=== PATIENT | female | born 1945 | race Caucasian/White ===

== ENCOUNTER 2016-09-13 13:07 | Inpatient (IN) | payer OTHER, MEDICAID ==
[~2016-09-13] VITALS: Ht 157.5 cm; Wt 152.0 kg
[~2016-09-13 13:07] MED LIST: ASPIRIN LOW DOS81 M2 PO; BUPROPION HCL150 M1 PO; CALCIUM CITRATE1 TA1 PO; CALMOSEPTINE1 OIN TOP; CEFPODOXIME PR200 MG PO; CLEARLAX17 GM/Dose PO; COLACE100 MG PO; COZAAR100 MG PO; FLUTICASON0.05 MG/Ac NS; LEVOTHYROXIN0.025 M2 PO; LIPITOR80 MG PO; LOPRESSOR50 MG PO; MICONAZOLE1 POW; NORTRIPTYLINE H10 MG PO; NORVASC2.5 MG PO; OMEPRAZOLE DR20 M1 PO; PERCOCET1 TA2 PO; PROVENTIL0.09 MG/A1 IH; ZITHROMAX500 MG PO; ZOLOFT100 MG PO
[2016-09-13 14:10] LABS: BASOPHIL % 0.2 % (0-2); PLATELET COUNT 200 x10^3mcL (130-400)
[2016-09-13 14:14] LABS: RED CELL DISTRIBUTION WIDTH 15.1 % (11.5-14.5)
[2016-09-13 14:18] LABS: CALCIUM 9.5 mg/dL (8.5-10.1); CARBON DIOXIDE 26.5 mmol/L (21-32); CHLORIDE SERUM 107 mmol/L (98-107); CREATININE SERUM 1.2 mg/dL (0.6-1.0); GLUCOSE SERUM 126 mg/dL (74-106); SODIUM SERUM 143 mmol/L (136-145)
[2016-09-13] MEDS ORDERED: GLUCOPHAGE XR500 MG PO (14:24)
[2016-09-13] MEDS ORDERED: CLARITIN REDITAB5 MG PO (14:25)
[2016-09-13] MEDS ORDERED: AMOXICILLIN500 M1 PO (14:25)
[2016-09-13] MEDS ORDERED: IBUPROFEN400 MG PO (14:26)
[2016-09-13] MEDS ORDERED: LASIX20 MG PO (14:26)
[2016-09-13] MEDS ORDERED: BENADRYL ALLERG25 M1 (14:27)
[2016-09-13] MEDS ORDERED: METOPROLOL SUCC50 M2 PO (14:27)
[2016-09-13 14:31] LABS: ALKALINE PHOSPHATASE 110 U/L (46-116); ALT/SGPT 19 U/L (14-59); AST/SGOT 19 U/L (15-37); BILIRUBIN TOTAL 0.37 mg/dL (0.20-1.00); T4(THYROXINE) 8.9 ug/dL (4.7-13.3); TOTAL PROTEIN, SERUM 7.4 g/dL (6.4-8.2)
[2016-09-13 14:36] LABS: ALBUMIN 3.3 g/dL (3.4-5.0); CHOLESTEROL 98 mg/dL (<200); HDL CHOLESTEROL 64 mg/dL (40-60)
[2016-09-13 15:54] LABS: MAGNESIUM 1.8 mg/dL (1.8-2.4); PHOSPHOROUS 3.4 mg/dL (2.5-4.9)
[2016-09-13 15:56] LABS: CHOLESTEROL/HDL RATIO 1.6
[2016-09-13 16:01] LABS: FREE T4 1.57 ng/dL (0.76-1.46); FREE THYROXINE INDEX 2.7 ug/dL (1.4-4.5); T4(THYROXINE) 7.8 ug/dL (4.7-13.3)
[2016-09-13 16:05] LABS: T3 TOTAL 0.56 ng/mL
[2016-09-13 16:07] VITALS: BP 168/100
[2016-09-13 16:25] VITALS: BP 168/100
[2016-09-13 18:00] VITALS: BP 169/78
[2016-09-13 21:41] VITALS: BP 132/76
[2016-09-14 05:42] VITALS: BP 131/65
[2016-09-14 07:08] LABS: BASOPHIL % 0.1 % (0-2); PLATELET COUNT 186 x10^3mcL (130-400); RED CELL DISTRIBUTION WIDTH 14.4 % (11.5-14.5)
[2016-09-14 07:22] LABS: ALBUMIN 2.8 g/dL (3.4-5.0); CALCIUM 9.2 mg/dL (8.5-10.1); CARBON DIOXIDE 28.6 mmol/L (21-32); CHLORIDE SERUM 106 mmol/L (98-107); CREATININE SERUM 1.1 mg/dL (0.6-1.0); GLUCOSE SERUM 113 mg/dL (74-106); MAGNESIUM 1.6 mg/dL (1.8-2.4); PHOSPHOROUS 3.4 mg/dL (2.5-4.9); POTASSIUM SERUM 3.6 mmol/L (3.5-5.1); SODIUM SERUM 142 mmol/L (136-145)
[2016-09-14 09:22] VITALS: BP 151/64
[2016-09-14] MEDS ORDERED: WELLBUTRIN XL150 M1 PO (13:11)
[2016-09-14] MEDS ORDERED: IBUPROFEN400 MG PO (13:14)
[2016-09-14] MEDS ORDERED: CENTRUM MULTIG80 MCG PO (13:19)
[2016-09-14] MEDS ORDERED: ASPIR 8181 MG PO (13:23)
[2016-09-14] MEDS ORDERED: COZAAR100 MG PO (13:24)
[2016-09-14] MEDS ORDERED: COLACE100 MG PO (13:28)
[2016-09-14] MEDS ORDERED: GOOD SENSE OMEP20 MG PO (13:31)
[2016-09-14] MEDS ORDERED: NYSTOP100000 U/G TOP (13:48)
[2016-09-14] MEDS ORDERED: VENTOLIN H0.09 MG/A1 INH (13:51)
[2016-09-14] MEDS ORDERED: LIPITOR80 MG GT (13:52)
[2016-09-14 15:03] VITALS: BP 145/72
[2016-09-14 17:28] VITALS: Ht 157.5 cm; Wt 152.0 kg
[2016-09-14 17:35] VITALS: BP 156/82
[2016-09-14 18:36] LABS: UA SPECIFIC GRAVITY 1.025 (1.005-1.035); microscopic required? YES; urine erythrocyte 2+ (NEGATIVE)
[2016-09-14 18:44] LABS: AMPHETAMINE QUAL UR NONE DETECTED (NEG <=1000)
[2016-09-14 22:01] VITALS: BP 147/63
[2016-09-15 06:52] VITALS: BP 143/97
[2016-09-15 06:59] LABS: BASOPHIL % 0.1 % (0-2); PLATELET COUNT 179 x10^3mcL (130-400); RED CELL DISTRIBUTION WIDTH 14.5 % (11.5-14.5)
[2016-09-15 07:17] LABS: CALCIUM 8.9 mg/dL (8.5-10.1); CHLORIDE SERUM 104 mmol/L (98-107); GLUCOSE SERUM 150 mg/dL (74-106); MAGNESIUM 1.6 mg/dL (1.8-2.4); PHOSPHOROUS 3.1 mg/dL (2.5-4.9); POTASSIUM SERUM 3.4 mmol/L (3.5-5.1); SODIUM SERUM 141 mmol/L (136-145)
[2016-09-15 14:50] VITALS: BP 135/70
[2016-09-15 17:21] VITALS: BP 147/73
[2016-09-15 20:41] VITALS: BP 130/86
[2016-09-16 05:25] VITALS: BP 112/78
[2016-09-16 07:08] LABS: BASOPHIL % 0.2 % (0-2); PLATELET COUNT 171 x10^3mcL (130-400)
[2016-09-16 07:12] LABS: RED CELL DISTRIBUTION WIDTH 14.7 % (11.5-14.5)
[2016-09-16 07:33] LABS: CARBON DIOXIDE 30.3 mmol/L (21-32); CHLORIDE SERUM 103 mmol/L (98-107); CREATININE SERUM 1.1 mg/dL (0.6-1.0); GLUCOSE SERUM 110 mg/dL (74-106); MAGNESIUM 1.8 mg/dL (1.8-2.4); SODIUM SERUM 139 mmol/L (136-145)
[2016-09-16 09:36] VITALS: BP 154/83
[2016-09-16 12:58] VITALS: BP 150/76
[2016-09-16 16:41] VITALS: BP 142/58
[2016-09-16 19:45] VITALS: BP 112/59
[2016-09-16 22:23] VITALS: BP 123/70
[2016-09-17 06:15] VITALS: BP 114/65
[2016-09-17 07:10] LABS: BASOPHIL % 0.1 % (0-2); PLATELET COUNT 207 x10^3mcL (130-400)
[2016-09-17 07:12] LABS: CALCIUM 9.4 mg/dL (8.5-10.1); CARBON DIOXIDE 32.1 mmol/L (21-32); CHLORIDE SERUM 100 mmol/L (98-107); CREATININE SERUM 1.2 mg/dL (0.6-1.0); GLUCOSE SERUM 150 mg/dL (74-106); SODIUM SERUM 138 mmol/L (136-145)
[2016-09-17 07:22] LABS: RED CELL DISTRIBUTION WIDTH 14.7 % (11.5-14.5)
[2016-09-17 09:40] VITALS: BP 132/69
[2016-09-17] MEDS ORDERED: LEVAQUIN750 MG PO (13:05)
[2016-09-17] MEDS ORDERED: CLINDAMYCIN HC300 MG PO (13:06)
[2016-09-17] MEDS ORDERED: LAC PO ×2 (13:06→14:41)
[2016-09-17 13:15] VITALS: BP 132/69
[2016-09-17 21:15] VITALS: BP 147/73
== END 2016-09-17 22:45 | disposition home health service (06) | DRG 177 ==
LOC: ED 13:07 → DU 14:55 → MU 09-17 10:20
PROVIDERS: Emergency Medicine; Family Medicine; ADMIT Family Medicine
DX: J69.0 Pneumonitis due to inhalation of food and vomit (principal); I50.43 Acute on chronic combined systolic (congestive) and diastolic (congestive) heart failure; N17.0 Acute kidney failure with tubular necrosis; E66.2 Morbid (severe) obesity with alveolar hypoventilation; N39.0 Urinary tract infection, site not specified; Z68.43 Body mass index [BMI] 50.0-59.9, adult; I42.0 Dilated cardiomyopathy; E44.1 Mild protein-calorie malnutrition; I48.0 Paroxysmal atrial fibrillation; I11.0 Hypertensive heart disease with heart failure; E11.65 Type 2 diabetes mellitus with hyperglycemia; D64.9 Anemia, unspecified; E11.51 Type 2 diabetes mellitus with diabetic peripheral angiopathy without gangrene; E11.40 Type 2 diabetes mellitus with diabetic neuropathy, unspecified; F32.9 Major depressive disorder, single episode, unspecified; E02 Subclinical iodine-deficiency hypothyroidism; L89.151 Pressure ulcer of sacral region, stage 1; E87.6 Hypokalemia; E83.42 Hypomagnesemia; E86.0 Dehydration; Z79.84 Long term (current) use of oral hypoglycemic drugs; M19.90 Unspecified osteoarthritis, unspecified site; R32 Unspecified urinary incontinence; S09.90XA Unspecified injury of head, initial encounter; W18.30XA Fall on same level, unspecified, initial encounter; Y92.018 Other place in single-family (private) house as the place of occurrence of the external cause; I37.1 Nonrheumatic pulmonary valve insufficiency; I34.0 Nonrheumatic mitral (valve) insufficiency
CPT/HCPCS: 36600; 80307; 82962; 83880; 84439; 92610-GN; 94150; J0456; J0696; J1644; J1940; J1956; J3475; J3490; J7030; J7050; Q0092

== ENCOUNTER 2016-09-18 15:55 | Emergency (ER) | payer OTHER, MEDICAID ==
[~2016-09-18 15:55] MED LIST changes: +AMOXICILLIN500 M1 PO; +ASPIR 8181 MG PO; +BENADRYL ALLERG25 M1; +CENTRUM MULTIG80 MCG PO; +CLARITIN REDITAB5 MG PO; +CLINDAMYCIN HC300 MG PO; +GLUCOPHAGE XR500 MG PO; +GOOD SENSE OMEP20 MG PO; +IBUPROFEN400 MG PO; +LAC PO; +LASIX20 MG PO; +LEVAQUIN750 MG PO; +LIPITOR80 MG GT; +METOPROLOL SUCC50 M2 PO; +NYSTOP100000 U/G TOP; +VENTOLIN H0.09 MG/A1 INH; +WELLBUTRIN XL150 M1 PO
[2016-09-18 17:04] LABS: CALCIUM 9.6 mg/dL (8.5-10.1); CARBON DIOXIDE 28.2 mmol/L (21-32); CHLORIDE SERUM 100 mmol/L (98-107); CREATININE SERUM 2.2 mg/dL (0.6-1.0); GLUCOSE SERUM 135 mg/dL (74-106); POTASSIUM SERUM 4.6 mmol/L (3.5-5.1); SODIUM SERUM 139 mmol/L (136-145)
[2016-09-18 17:06] LABS: ALKALINE PHOSPHATASE 100 U/L (46-116); ALT/SGPT 18 U/L (14-59); AST/SGOT 23 U/L (15-37); BILIRUBIN TOTAL 0.4 mg/dL (0.20-1.00); PHOSPHOROUS 3.6 mg/dL (2.5-4.9); TOTAL PROTEIN, SERUM 7.6 g/dL (6.4-8.2); URIC ACID 6.3 mg/dL (2.6-6.0)
[2016-09-18 17:16] LABS: ALBUMIN 2.7 g/dL (3.4-5.0); CHOLESTEROL 125 mg/dL (<200); HDL CHOLESTEROL 71 mg/dL (40-60)
[2016-09-18 17:33] LABS: BASOPHIL % 0.3 % (0-2); PLATELET COUNT 257 x10^3mcL (130-400); RED CELL DISTRIBUTION WIDTH 14.3 % (11.5-14.5)
--- NOTE | 2016-09-18 17:51 | NUR ---
SOCIAL SERVICE NOTE: REQUESTED BY ER STAFF TO ASSESS THIS PT AND HELP DEVELOP A SAFE DISCHARGE PLAN. PT WAS JUST DISCHARGED YESTERDAY AND ROBINSON SCHREIBER, SPENT AND EXTENDED AMOUNT OF TIME WORKING WITH THE PT FOR CARE PLANNING. ULTIMATELY, THE PT CHOSE TO GO HOME AND INDICATED SHE WOULD HAVE HER VARIOUS FRIENDS AND NEIGHBORS CONTINUE TO ASSIST NEEDED. I MET WITH PT AT BEDSIDE. SHE WAS A/O AND COOPERATIVE WITH THE ASSESSMENT. SHE LIVES ALONE AND FELL AT HOME. EMS STAFF RESPONDED TO A CALL TO HER HOME AND TRANSPORTED HER TO THIS FACILITY. SHE HAS NO FAMILY IN THE ARE[place] AND RELIES ON UNRELATED PEOPLE IN HER LIFE TO HELP THOUGH SHE WAS EDUCATED YESTERDAY RE THE RISKS OF THIS ARRANGEMENT. CARE OPTIONS WERE EXPLORED AND PT DECLINED, PARTLY BECAUSE SHE FELT SHE COULD NOT AFFORD OTHER OPTIONS OR BECAUSE SHE DID NOT WANT TO LEAVE HER HOME. HOME HEALTH WAS ARRANGED AT DISCHARGE. I REVIEWED THE OPTIONS AGAIN WITH HER- HOME ALONE WITH INTERMITTENT CARE CURRENTLY ARRANGED, ATTEMPT TO ARRANGE MORE CONSISTENT CARE ARRANGEMENTS, CONTACT HER SISTER, INDU [place] IN [facility] [phone], AND ASK FOR ASSISTANCE, OR BE PLACED IN A SENIOR LIVING FOR GROUP HOME CARE. SHE WAS INITIALLY AGREEABLE TO CONSIDERING THESE OPTIONS BUT ALSO WANTED TO MAKE MORE CALLS TO THE PEOPLE WHO NORMALLY HELP HER. I SPOKE WITH THE SISTER AND SHE SAID SHE WOULD CALL BACK. I CALLED HER AGAIN AND SHE DID NOT ANSWER. I LEFT A MESSAGE. WILL CONTINUE TO FOLLOW TO CONFIRM A PLAN AND WILL FILE AN APS REPORT IF THE PT DECIDES TO RETURN TO HER CURRENT ARRANGEMENT.
[2016-09-18 19:13] VITALS: BP 141/84
[2016-09-19] MEDS ORDERED: ZOLOFT100 MG PO (19:57)
[2016-09-19] MEDS ORDERED: CLARITIN10 MG PO (19:58)
[2016-09-19] MEDS ORDERED: METFORMIN HCL500 MG PO (19:59)
[2016-09-19] MEDS ORDERED: FUROSEMIDE20 MG PO (19:59)
[2016-09-19] MEDS ORDERED: BUPROPION HCL150 M1 PO (20:01)
[2016-09-19] MEDS ORDERED: TRIAMCINOLONE AC TOP (20:02)
[2016-09-19] MEDS ORDERED: LEVOTHYROXINE300 MCG PO (20:04)
[2016-09-19] MEDS ORDERED: METOPROLOL TART50 MG PO (20:05)
[2016-09-19] MEDS ORDERED: LIPITOR80 MG PO (20:07)
[2016-09-19] MEDS ORDERED: NORTRIPTYLINE H10 MG PO (20:07)
[2016-09-19] MEDS ORDERED: LOSARTAN POTAS100 M1 PO (20:12)
[2016-09-19] MEDS ORDERED: APAP/OXYCODONE1 TA4 PO (20:14)
[2016-09-19] MEDS ORDERED: NYSTOP100000 U/G TOP (20:17)
[2016-09-19] MEDS ORDERED: GOOD SENSE OMEP20 MG PO (20:17)
[2016-09-19] MEDS ORDERED: CENTRUM MULTIG80 MCG PO (20:21)
== END 2016-09-18 19:13 | disposition home or self-care (01) ==
LOC: ED 15:55
PROVIDERS: Emergency Medicine
DX: R53.1 Weakness (principal); I10 Essential (primary) hypertension; E11.9 Type 2 diabetes mellitus without complications; E66.01 Morbid (severe) obesity due to excess calories; Z79.899 Other long term (current) drug therapy
CPT/HCPCS: 83880; J7030; Q0092

== ENCOUNTER 2016-09-19 15:49 | Observation (INO) | payer OTHER, MEDICAID ==
[~2016-09-19] VITALS: Ht 157.5 cm; Wt 138.4 kg
[2016-09-19 17:43] LABS: BASOPHIL % 0.2 % (0-2); PLATELET COUNT 266 x10^3mcL (130-400)
[2016-09-19 17:44] LABS: CALCIUM 9.7 mg/dL (8.5-10.1); CARBON DIOXIDE 28.5 mmol/L (21-32); CHLORIDE SERUM 101 mmol/L (98-107); CREATININE SERUM 2.8 mg/dL (0.6-1.0); GLUCOSE SERUM 132 mg/dL (74-106); RED CELL DISTRIBUTION WIDTH 14.6 % (11.5-14.5); SODIUM SERUM 138 mmol/L (136-145)
[2016-09-19 17:53] LABS: ALKALINE PHOSPHATASE 95 U/L (46-116); ALT/SGPT 25 U/L (14-59); AST/SGOT 30 U/L (15-37); BILIRUBIN TOTAL 0.32 mg/dL (0.20-1.00); TOTAL PROTEIN, SERUM 7.6 g/dL (6.4-8.2)
[2016-09-19 17:54] LABS: ALBUMIN 2.8 g/dL (3.4-5.0)
[2016-09-19 18:15] LABS: CK-MB 3.3 ng/mL (0-3.6)
[2016-09-19 19:27] LABS: T3 TOTAL 0.59 ng/mL
[2016-09-19 19:31] LABS: FREE T4 1.65 ng/dL (0.76-1.46); T4(THYROXINE) 8.8 ug/dL (4.7-13.3)
[2016-09-19] MEDS ORDERED: ZOLOFT100 MG PO (19:57)
[2016-09-19] MEDS ORDERED: CLARITIN10 MG PO (19:58)
[2016-09-19] MEDS ORDERED: FUROSEMIDE20 MG PO (19:59)
[2016-09-19] MEDS ORDERED: METFORMIN HCL500 MG PO (19:59)
[2016-09-19] MEDS ORDERED: BUPROPION HCL150 M1 PO (20:01)
[2016-09-19] MEDS ORDERED: TRIAMCINOLONE AC TOP (20:02)
[2016-09-19] MEDS ORDERED: LEVOTHYROXINE300 MCG PO (20:04)
[2016-09-19] MEDS ORDERED: METOPROLOL TART50 MG PO (20:05)
[2016-09-19 20:07] LABS: CHOLESTEROL/HDL RATIO 1.9
[2016-09-19] MEDS ORDERED: LIPITOR80 MG PO (20:07)
[2016-09-19] MEDS ORDERED: NORTRIPTYLINE H10 MG PO (20:07)
[2016-09-19] MEDS ORDERED: LOSARTAN POTAS100 M1 PO (20:12)
[2016-09-19] MEDS ORDERED: APAP/OXYCODONE1 TA4 PO (20:14)
[2016-09-19] MEDS ORDERED: NYSTOP100000 U/G TOP (20:17)
[2016-09-19] MEDS ORDERED: GOOD SENSE OMEP20 MG PO (20:17)
[2016-09-19] MEDS ORDERED: CENTRUM MULTIG80 MCG PO (20:21)
[2016-09-20 00:23] LABS: microscopic required? YES; urine erythrocyte TRACE (NEGATIVE)
[2016-09-20] MEDS ORDERED: IBUPROFEN600 MG PO (00:26)
[2016-09-20 01:09] VITALS: BP 150/65
[2016-09-20 01:11] VITALS: BP 150/65
[2016-09-20 05:56] VITALS: BP 111/53
[2016-09-20 06:06] LABS: BASOPHIL % 0.3 % (0-2); PLATELET COUNT 242 x10^3mcL (130-400); RED CELL DISTRIBUTION WIDTH 14.3 % (11.5-14.5)
[2016-09-20 06:22] LABS: CALCIUM 9.2 mg/dL (8.5-10.1); CARBON DIOXIDE 26.9 mmol/L (21-32); CHLORIDE SERUM 106 mmol/L (98-107); CREATININE SERUM 2.7 mg/dL (0.6-1.0); GLUCOSE SERUM 100 mg/dL (74-106); MAGNESIUM 1.9 mg/dL (1.8-2.4); PHOSPHOROUS 4.1 mg/dL (2.5-4.9); POTASSIUM SERUM 4.9 mmol/L (3.5-5.1); SODIUM SERUM 143 mmol/L (136-145)
[2016-09-20 09:50] VITALS: BP 117/60
[2016-09-20 13:30] VITALS: BP 115/62
[2016-09-20 17:44] VITALS: BP 115/62
== END 2016-09-20 18:58 | disposition short-term general hospital (02) | DRG 604 ==
LOC: ED 15:49 → DU 09-20 00:03
PROVIDERS: Emergency Medicine; ADMIT Family Medicine
DX: S00.03XA Contusion of scalp, initial encounter (principal); N17.0 Acute kidney failure with tubular necrosis; E43 Unspecified severe protein-calorie malnutrition; I50.43 Acute on chronic combined systolic (congestive) and diastolic (congestive) heart failure; Z68.43 Body mass index [BMI] 50.0-59.9, adult; S50.11XA Contusion of right forearm, initial encounter; S40.011A Contusion of right shoulder, initial encounter; M54.5 Low back pain; E11.65 Type 2 diabetes mellitus with hyperglycemia; E11.51 Type 2 diabetes mellitus with diabetic peripheral angiopathy without gangrene; I48.91 Unspecified atrial fibrillation; I11.0 Hypertensive heart disease with heart failure; F32.9 Major depressive disorder, single episode, unspecified; R32 Unspecified urinary incontinence; M19.90 Unspecified osteoarthritis, unspecified site; Z79.84 Long term (current) use of oral hypoglycemic drugs; W05.0XXA Fall from non-moving wheelchair, initial encounter; Y92.008 Other place in unspecified non-institutional (private) residence as the place of occurrence of the external cause
CPT/HCPCS: 82962; 83880; 84439; 94150; 97110-GP; G0378; J1644; J2270; J7030; J7620; J7633

== ENCOUNTER 2018-05-28 02:11 | Inpatient (IN) | payer OTHER, MEDICAID ==
[~2018-05-28] VITALS: Ht 160 cm; Wt 135.0 kg
[~2018-05-28 02:11] MED LIST changes: +APAP/OXYCODONE1 TA4 PO; +CLARITIN10 MG PO; +FUROSEMIDE20 MG PO; +IBUPROFEN600 MG PO; +LEVOTHYROXINE300 MCG PO; +LOSARTAN POTAS100 M1 PO; +METFORMIN HCL500 MG PO; +METOPROLOL TART50 MG PO; +TRIAMCINOLONE AC TOP
[2018-05-28 03:26] LABS: PLATELET COUNT 138 x10^3mcL (130-400)
[2018-05-28 03:27] LABS: RED CELL DISTRIBUTION WIDTH 15.3 % (11.5-14.5)
[2018-05-28 03:43] LABS: ALKALINE PHOSPHATASE 141 U/L (46-116); ALT/SGPT 99 U/L (14-59); AST/SGOT 55 U/L (15-37); BILIRUBIN TOTAL 1.4 mg/dL (0.20-1.00); CALCIUM 9.3 mg/dL (8.5-10.1); CHLORIDE SERUM 102 mmol/L (98-107); CREATININE SERUM 3.7 mg/dL (0.6-1.0); FREE T4 0.65 ng/dL (0.76-1.46); GLUCOSE SERUM 153 mg/dL (74-106); POTASSIUM SERUM 4.6 mmol/L (3.5-5.1); SODIUM SERUM 136 mmol/L (136-145); TOTAL PROTEIN, SERUM 6.7 g/dL (6.4-8.2)
[2018-05-28 04:32] LABS: BAND NEUTROPHIL 16 % (0-10); BASOPHIL 0 % (0-2); MONOCYTE 6 % (0-7); SEGMENTED NEUTROPHILS 72 % (37-75)
[2018-05-28 04:34] LABS: acanthocyte (spur cell) 1+
[2018-05-28 04:35] LABS: rbc morphology (normal/abnorm) ABNORMAL (NORMAL)
[2018-05-28 04:36] LABS: PLATELET MORPHOLOGY LARGE PLATELET SEEN
[2018-05-28 06:18] LABS: CHOLESTEROL/HDL RATIO 17.4; PHOSPHOROUS 3.3 mg/dL (2.5-4.9)
[2018-05-28 08:15] VITALS: BP 151/108
[2018-05-28 14:09] LABS: microscopic required? YES; urine erythrocyte 3+ (NEGATIVE)
[2018-05-28] MEDS ORDERED: DITROPAN XL5 MG PO (18:06)
[2018-05-28] MEDS ORDERED: AZITHROMYCIN250 M1 PO (18:08)
[2018-05-28] MEDS ORDERED: ASPIRIN ADULT L81 M5 PO (18:09)
[2018-05-28] MEDS ORDERED: NITROGLYCERIN0.4 MG SL (18:10)
[2018-05-28] MEDS ORDERED: NORCO1 TA2 PO (18:11)
[2018-05-28] MEDS ORDERED: NORTRIPTYLINE H10 M2 PO (18:15)
[2018-05-28] MEDS ORDERED: GABAPENTIN100 M2 PO (18:16)
[2018-05-28] MEDS ORDERED: MOT600 PO (18:17)
[2018-05-28] MEDS ORDERED: VENTOLIN H0.09 MG/A1 INH (18:18)
[2018-05-28] MEDS ORDERED: CRANBERRY450 M1 PO (18:19)
[2018-05-28] MEDS ORDERED: THERA M PLUS T1 EACH PO (18:19)
[2018-05-28 20:53] VITALS: BP 135/72
[2018-05-29 05:25] VITALS: BP 121/72
[2018-05-29 06:16] VITALS: BP 106/87
[2018-05-29 08:38] VITALS: BP 153/95
[2018-05-29 12:08] VITALS: BP 144/76
[2018-05-29 16:22] VITALS: BP 154/80
[2018-05-29 21:24] VITALS: BP 131/68
[2018-05-30 05:51] VITALS: BP 150/72
[2018-05-30 08:29] VITALS: BP 136/82
[2018-05-30 12:11] VITALS: BP 150/88
[2018-05-30 16:21] VITALS: BP 147/92
[2018-05-30 17:30] VITALS: BP 147/92
[2018-05-30 20:56] VITALS: BP 149/95
[2018-05-31 05:17] VITALS: BP 145/71
[2018-05-31 06:34] LABS: PLATELET COUNT 142 x10^3mcL (130-400)
[2018-05-31 06:43] LABS: CALCIUM 8.8 mg/dL (8.5-10.1); CARBON DIOXIDE 24.7 mmol/L (21-32); CHLORIDE SERUM 105 mmol/L (98-107); CREATININE SERUM 2.7 mg/dL (0.6-1.0); GLUCOSE SERUM 152 mg/dL (74-106); POTASSIUM SERUM 3.7 mmol/L (3.5-5.1); SODIUM SERUM 142 mmol/L (136-145)
[2018-05-31 12:34] VITALS: BP 148/77
[2018-05-31 13:42] LABS: BAND NEUTROPHIL 8 % (0-10); MONOCYTE 9 % (0-7); MYELOCYTE 2 % (0-2); SEGMENTED NEUTROPHILS 71 % (37-75); rbc morphology (normal/abnorm) ABNORMAL (NORMAL)
[2018-05-31 13:43] LABS: PLATELET MORPHOLOGY LARGE PLATELET SEEN; acanthocyte (spur cell) 1+
[2018-05-31 16:46] VITALS: BP 126/80
[2018-05-31 22:39] VITALS: BP 120/84
[2018-06-01 06:26] VITALS: BP 135/72
[2018-06-01 07:12] LABS: PLATELET COUNT 178 x10^3mcL (130-400); RED CELL DISTRIBUTION WIDTH 14.4 % (11.5-14.5)
[2018-06-01 07:22] LABS: CALCIUM 8.6 mg/dL (8.5-10.1); CHLORIDE SERUM 103 mmol/L (98-107); CREATININE SERUM 2.4 mg/dL (0.6-1.0); GLUCOSE SERUM 165 mg/dL (74-106); POTASSIUM SERUM 3.3 mmol/L (3.5-5.1); SODIUM SERUM 139 mmol/L (136-145)
[2018-06-01 08:47] LABS: BAND NEUTROPHIL 9 % (0-10); BASOPHIL 0 % (0-2); MONOCYTE 7 % (0-7); MYELOCYTE 2 % (0-2); SEGMENTED NEUTROPHILS 73 % (37-75)
[2018-06-01 08:51] LABS: ovalocyte/elliptocyte 1+; rbc morphology (normal/abnorm) ABNORMAL (NORMAL); tear drop cell (dacryocyte) 1+
[2018-06-01 09:36] VITALS: BP 147/77
[2018-06-01 13:47] VITALS: BP 155/83
[2018-06-01 17:01] VITALS: BP 149/85
[2018-06-01 21:19] VITALS: BP 119/48
[2018-06-02 04:56] VITALS: BP 139/75
[2018-06-02 06:29] LABS: PLATELET COUNT 226 x10^3mcL (130-400)
[2018-06-02 06:40] LABS: BASOPHIL % 0 % (0-2); RED CELL DISTRIBUTION WIDTH 14.7 % (11.5-14.5)
[2018-06-02 07:05] LABS: CALCIUM 9.2 mg/dL (8.5-10.1); CARBON DIOXIDE 27.2 mmol/L (21-32); CHLORIDE SERUM 104 mmol/L (98-107); CREATININE SERUM 2.3 mg/dL (0.6-1.0); GLUCOSE SERUM 202 mg/dL (74-106); SODIUM SERUM 141 mmol/L (136-145)
[2018-06-02 09:19] VITALS: BP 109/76
[2018-06-02 11:30] VITALS: BP 109/73
[2018-06-02 12:51] VITALS: BP 140/75
[2018-06-02 17:54] VITALS: BP 116/74
[2018-06-02 21:34] VITALS: BP 134/78
[2018-06-03 05:18] VITALS: BP 142/80
[2018-06-03 09:05] VITALS: BP 162/81
[2018-06-03 10:41] LABS: BASOPHIL % 0.2 % (0-2); PLATELET COUNT 303 x10^3mcL (130-400); RED CELL DISTRIBUTION WIDTH 13.8 % (11.5-14.5)
[2018-06-03 10:55] LABS: CALCIUM 9.4 mg/dL (8.5-10.1); CARBON DIOXIDE 26.2 mmol/L (21-32); CHLORIDE SERUM 102 mmol/L (98-107); CREATININE SERUM 2.1 mg/dL (0.6-1.0); GLUCOSE SERUM 275 mg/dL (74-106); POTASSIUM SERUM 4.4 mmol/L (3.5-5.1); SODIUM SERUM 140 mmol/L (136-145)
[2018-06-03 12:04] VITALS: BP 150/74
[2018-06-03 16:37] VITALS: BP 144/70
[2018-06-03 21:04] VITALS: BP 133/73
[2018-06-04 05:10] VITALS: BP 149/73
[2018-06-04 06:19] LABS: BASOPHIL % 0.1 % (0-2); PLATELET COUNT 331 x10^3mcL (130-400)
[2018-06-04 06:51] LABS: CALCIUM 8.9 mg/dL (8.5-10.1); CARBON DIOXIDE 27.5 mmol/L (21-32); CHLORIDE SERUM 100 mmol/L (98-107); GLUCOSE SERUM 289 mg/dL (74-106); POTASSIUM SERUM 4.1 mmol/L (3.5-5.1); SODIUM SERUM 134 mmol/L (136-145)
[2018-06-04 10:28] VITALS: BP 146/75
[2018-06-04 13:55] VITALS: BP 149/76
[2018-06-04 18:46] VITALS: BP 151/76
[2018-06-04 21:10] VITALS: BP 104/84
[2018-06-05] VITALS (8 sets, daily range): BP systolic 122–157; BP diastolic 76–92; Ht 160 cm; Wt 135.0 kg
[2018-06-05 07:13] LABS: BASOPHIL % 0.2 % (0-2); PLATELET COUNT 372 x10^3mcL (130-400)
[2018-06-05 07:47] LABS: CALCIUM 9.3 mg/dL (8.5-10.1); CARBON DIOXIDE 27.7 mmol/L (21-32); CHLORIDE SERUM 102 mmol/L (98-107); CREATININE SERUM 1.8 mg/dL (0.6-1.0); GLUCOSE SERUM 221 mg/dL (74-106); POTASSIUM SERUM 4.3 mmol/L (3.5-5.1); SODIUM SERUM 139 mmol/L (136-145)
[2018-06-05] MEDS ORDERED: KEFLEX500 M1 PO (14:35)
== END 2018-06-05 23:07 | disposition hospice, home (50) | DRG 871 ==
LOC: ED 02:11 → DU 05:36
PROVIDERS: Emergency Medicine; Family Medicine; ADMIT Internal Medicine
DX: A41.51 Sepsis due to Escherichia coli [E. coli] (principal); I21.A1 Myocardial infarction type 2; I50.23 Acute on chronic systolic (congestive) heart failure; N17.0 Acute kidney failure with tubular necrosis; E87.2 Acidosis; N39.0 Urinary tract infection, site not specified; R65.20 Severe sepsis without septic shock; I48.91 Unspecified atrial fibrillation; E03.9 Hypothyroidism, unspecified; F32.9 Major depressive disorder, single episode, unspecified; E66.9 Obesity, unspecified; Z68.29 Body mass index [BMI] 29.0-29.9, adult; Z99.3 Dependence on wheelchair; Z22.322 Carrier or suspected carrier of Methicillin resistant Staphylococcus aureus; Z79.84 Long term (current) use of oral hypoglycemic drugs
CPT/HCPCS: 36600; 83880; 84439; 87804; 92526-GN; 92610-GN; 97110-GP; 97112-GP; 97116-GP; 97530-GP; J0713; J1940; J2543; J3370; J7040; J7050; J7060; J7620; Q0092

== ENCOUNTER 2019-04-25 17:56 | Inpatient (IN) | payer OTHER, MEDICAID ==
[~2019-04-25] VITALS: Ht 167.6 cm; Wt 138.0 kg
[~2019-04-25 17:56] MED LIST changes: +ASPIRIN ADULT L81 M5 PO; +AZITHROMYCIN250 M1 PO; +CRANBERRY450 M1 PO; +DITROPAN XL5 MG PO; +GABAPENTIN100 M2 PO; +KEFLEX500 M1 PO; +MOT600 PO; +NITROGLYCERIN0.4 MG SL; +NORCO1 TA2 PO; +NORTRIPTYLINE H10 M2 PO; +THERA M PLUS T1 EACH PO
[2019-04-25 18:37] LABS: CALCIUM 9.2 mg/dL (8.5-10.1); CARBON DIOXIDE 21.2 mmol/L (21-32); CHLORIDE SERUM 105 mmol/L (98-107); CREATININE SERUM 1.2 mg/dL (0.6-1.0); GLUCOSE SERUM 225 mg/dL (74-106); PLATELET COUNT 171 x10^3mcL (130-400); SODIUM SERUM 140 mmol/L (136-145)
[2019-04-25 18:42] LABS: ALKALINE PHOSPHATASE 135 U/L (46-116); ALT/SGPT 43 U/L (14-59); AST/SGOT 49 U/L (15-37); BILIRUBIN TOTAL 0.8 mg/dL (0.20-1.00); LIPASE 62 IU/L (73-393); TOTAL PROTEIN, SERUM 7.7 g/dL (6.4-8.2)
[2019-04-25 18:43] LABS: ALBUMIN 3.1 g/dL (3.4-5.0)
[2019-04-25 18:59] LABS: RED CELL DISTRIBUTION WIDTH 15.3 % (11.5-14.5)
[2019-04-25 19:26] LABS: microscopic required? YES; urine erythrocyte 2+ (NEGATIVE)
[2019-04-25 19:37] LABS: BAND NEUTROPHIL 1 % (0-10); BASOPHIL 0 % (0-2); MONOCYTE 5 % (0-7); SEGMENTED NEUTROPHILS 87 % (37-75); rbc morphology (normal/abnorm) ABNORMAL (NORMAL)
[2019-04-25 20:18] LABS: CHOLESTEROL/HDL RATIO 2.3; MAGNESIUM 1.7 mg/dL (1.8-2.4); PHOSPHOROUS 2.7 mg/dL (2.5-4.9)
[2019-04-25 20:25] LABS: T3 TOTAL 0.53 ng/mL
[2019-04-25 20:28] LABS: FREE T4 1.15 ng/dL (0.76-1.46); FREE THYROXINE INDEX 2.6 ug/dL (1.4-4.5); T4(THYROXINE) 7.1 ug/dL (4.7-13.3)
[2019-04-25 21:04] VITALS: BP 147/86
[2019-04-25 21:49] VITALS: BP 147/86
[2019-04-25 22:15] LABS: AMPHETAMINE QUAL UR NONE DETECTED (See below)
[2019-04-25 23:47] VITALS: BP 171/92
[2019-04-26 04:33] VITALS: BP 146/59
[2019-04-26 05:14] LABS: BASOPHIL % 0.3 % (0-2); PLATELET COUNT 149 x10^3mcL (130-400)
[2019-04-26 05:22] LABS: RED CELL DISTRIBUTION WIDTH 15.4 % (11.5-14.5)
[2019-04-26 05:27] LABS: CALCIUM 8.8 mg/dL (8.5-10.1); CARBON DIOXIDE 27.1 mmol/L (21-32); CHLORIDE SERUM 104 mmol/L (98-107); CREATININE SERUM 1.1 mg/dL (0.6-1.0); GLUCOSE SERUM 140 mg/dL (74-106); MAGNESIUM 1.7 mg/dL (1.8-2.4); PHOSPHOROUS 2.7 mg/dL (2.5-4.9); POTASSIUM SERUM 3.1 mmol/L (3.5-5.1); SODIUM SERUM 141 mmol/L (136-145)
[2019-04-26 07:45] VITALS: BP 142/61
[2019-04-26 11:19] VITALS: BP 121/60
[2019-04-26 15:13] VITALS: BP 138/76
[2019-04-26 18:37] VITALS: BP 157/84
[2019-04-26 20:31] VITALS: BP 156/62
[2019-04-27 05:31] VITALS: BP 156/95
[2019-04-27 07:57] LABS: BASOPHIL % 0.2 % (0-2); PLATELET COUNT 166 x10^3mcL (130-400)
[2019-04-27 08:01] LABS: RED CELL DISTRIBUTION WIDTH 14.8 % (11.5-14.5)
[2019-04-27 08:09] LABS: CALCIUM 8.8 mg/dL (8.5-10.1); CARBON DIOXIDE 29.1 mmol/L (21-32); CHLORIDE SERUM 102 mmol/L (98-107); CREATININE SERUM 1.2 mg/dL (0.6-1.0); GLUCOSE SERUM 127 mg/dL (74-106); MAGNESIUM 1.6 mg/dL (1.8-2.4); PHOSPHOROUS 2.8 mg/dL (2.5-4.9); POTASSIUM SERUM 3.2 mmol/L (3.5-5.1); SODIUM SERUM 142 mmol/L (136-145)
[2019-04-27 08:59] VITALS: BP 142/59
[2019-04-27 12:24] VITALS: BP 136/77
[2019-04-27 17:40] VITALS: BP 137/65
[2019-04-27 20:40] VITALS: BP 139/79
[2019-04-28 05:46] VITALS: BP 148/83
[2019-04-28 06:24] LABS: BASOPHIL % 0.1 % (0-2); PLATELET COUNT 196 x10^3mcL (130-400)
[2019-04-28 06:36] LABS: CALCIUM 8.8 mg/dL (8.5-10.1); CARBON DIOXIDE 29.8 mmol/L (21-32); CHLORIDE SERUM 100 mmol/L (98-107); CREATININE SERUM 1.3 mg/dL (0.6-1.0); GLUCOSE SERUM 148 mg/dL (74-106); POTASSIUM SERUM 3.5 mmol/L (3.5-5.1); SODIUM SERUM 138 mmol/L (136-145)
[2019-04-28 08:18] VITALS: BP 154/73
[2019-04-28 12:19] VITALS: BP 113/67
[2019-04-28 16:26] VITALS: BP 127/51
[2019-04-28 20:26] VITALS: BP 120/56
[2019-04-29 05:13] VITALS: BP 153/77
[2019-04-29 06:38] LABS: CALCIUM 9.2 mg/dL (8.5-10.1); CARBON DIOXIDE 27.7 mmol/L (21-32); CHLORIDE SERUM 97 mmol/L (98-107); CREATININE SERUM 1.3 mg/dL (0.6-1.0); GLUCOSE SERUM 163 mg/dL (74-106); POTASSIUM SERUM 3.5 mmol/L (3.5-5.1); SODIUM SERUM 134 mmol/L (136-145)
[2019-04-29 06:59] LABS: BASOPHIL % 0.1 % (0-2); PLATELET COUNT 201 x10^3mcL (130-400)
[2019-04-29 07:07] LABS: RED CELL DISTRIBUTION WIDTH 14.8 % (11.5-14.5)
[2019-04-29 08:48] VITALS: BP 120/67
[2019-04-29] MEDS ORDERED: LASIX40 MG PO (10:05)
[2019-04-29] MEDS ORDERED: LEVOFLOXACIN500 M1 PO (10:15)
[2019-04-29 12:11] VITALS: BP 107/65
[2019-04-29 12:59] VITALS: BP 107/65
[2019-05-04 15:02] VITALS: Ht 167.6 cm; Wt 138.0 kg
== END 2019-04-29 15:47 | disposition hospice, home (50) | DRG 291 ==
LOC: ED 17:56 → DU 19:39 → IC 19:39 → MU 04-26 18:32 → DU 04-26 23:25
PROVIDERS: Emergency Medicine; Internal Medicine; ADMIT General Practice
DX: I11.0 Hypertensive heart disease with heart failure (principal); J18.9 Pneumonia, unspecified organism; N17.0 Acute kidney failure with tubular necrosis; Z68.42 Body mass index [BMI] 45.0-49.9, adult; N39.0 Urinary tract infection, site not specified; I50.43 Acute on chronic combined systolic (congestive) and diastolic (congestive) heart failure; E11.65 Type 2 diabetes mellitus with hyperglycemia; K21.9 Gastro-esophageal reflux disease without esophagitis; I87.2 Venous insufficiency (chronic) (peripheral); L30.8 Other specified dermatitis; I35.1 Nonrheumatic aortic (valve) insufficiency; I36.1 Nonrheumatic tricuspid (valve) insufficiency; I34.0 Nonrheumatic mitral (valve) insufficiency; N31.9 Neuromuscular dysfunction of bladder, unspecified; E03.9 Hypothyroidism, unspecified; I48.91 Unspecified atrial fibrillation; Z79.82 Long term (current) use of aspirin; Z79.84 Long term (current) use of oral hypoglycemic drugs; Z79.1 Long term (current) use of non-steroidal anti-inflammatories (NSAID)
CPT/HCPCS: 36600; 82962; 83880; 84439; 87804; C9113; G0378; J0456; J0696; J1940; J2405; J3475; J7050; J7620; Q0092